=== PATIENT | male | born 1965 ===

== ENCOUNTER 2020-12-27 14:35 | Emergency (ER) | payer OTHER, SELFPAY ==
[2020-12-27 14:57] VITALS: BP 205/100; PULSE 77; RESP 14; TEMP 36.4; O2SAT 99; BMI 29.7
--- NOTE | 2020-12-27 17:12 | ED_ITS ---
HPI - Eye Problem General Chief complaint: Eye Problems Stated complaint: debris in left eye since 12/23 Time Seen by Provider: 12/27/20 17:08 Source: patient Mode of arrival: Ambulatory Limitations: no limitations History of Present Illness HPI Narrative: Patient is a 55-year-old male presents with left eye pain ongoing for the last 4 days. 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 He feels like it is rubbing underneath his eyelid ever since. He does not wear contacts only reading glasses chief complaint: eye pain and eye redness Onset (ago): day(s) (4) Place: work Related Data Previous Rx's Medication Instructions Recorded polymyxin B sulf-trimethoprim 1 drp EYE-LEFT Q4HRWA #10 ml 12/27/20 [Polytrim] Review of Systems Review of Systems Narrative: GENERAL: Denies chills,fever HEENT: See HPI RESPIRATORY: Denies dyspnea, cough, wheezing CARDIOVASCULAR: Denies chest pain, palpitations GASTROINTESTINAL: Denies nausea, vomiting MUSCULOSKELETAL: Denies extremity pain, injury SKIN: No rash, no laceration, no pruritus NEUROLOGIC: Denies weakness, dizziness, headache, numbness 8 point review of systems is negative except for those stated above and HPI Patient History Social History Smoking Status: Never smoker Smoking Status: Never smoker alcohol intake frequency: 0-2 drinks per day Substance Use Type: does not use Exam Initial Vital Signs Initial Vital Signs: Vital Signs Temperature 97.6 F 12/27/20 14:57 Pulse Rate 77 12/27/20 14:57 Respiratory Rate 14 12/27/20 14:57 Blood Pressure 205/100 H 12/27/20 14:57 Pulse Oximetry 99 12/27/20 14:57 GENERAL: Well-appearing, well-nourished and in no acute distress. Left eye was treated with proparacaine, stained with fluorescein. Foreign body noted over the cornea CARDIOVASCULAR: peripheral pulses in tact, cap refill <2 sec RESPIRATORY: No respiratory distress, speaks in full sentences without difficulty EXTREMITIES: Normal range of motion, no clubbing or edema. Neurovascularly intact NEUROLOGICAL: Cranial nerves II through XII grossly intact. Normal gait and speech. SKIN: Warm, dry, no petechiae, no rashes or lesions. Procedures Foreign Body EYE Time Out performed: Yes Location: eye (L) Topical anesthetic used: proparacaine Foreign body: metal Evidence of corneal penetration: No Technique: irrigation, cotton tip swab and needle Procedure performed under: direct visualization with magnification Post-procedure medication: ophthalmic antibiotic Patient tolerated procedure: well Course Orders Ordered: Discontinued Medications Diphtheria/Tetanus/Acell Pertussis (Tet,Diph,Pertuss(Acell),Vac/Pf 0.5 Ml Sy ringe) 0.5 ml IM .ONCE ONE Stop: 12/27/20 17:45 Last Admin: 12/27/20 17:51 Dose: 0.5 ml Documented by: SHAE Fluorescein Sodium (Fluorescein 1 Mg Strip) 1 mg EYE-LEFT NOW ONE Stop: 12/27/20 17:13 Last Admin: 12/27/20 17:21 Dose: 1 mg Documented by: SHAE Proparacaine HCl (Proparacaine 0.5% Ophth Ciara) 1 drops EYE-BOTH NOW ONE Stop: 12/27/20 17:13 Last Admin: 12/27/20 17:20 Dose: 1 drops Documented by: SHAE Vital Signs Vital signs: Vital Signs - 8 hr 12/27/20 14:57 12/27/20 18:05 Temperature 97.6 F Pulse Rate 77 65 Respiratory Rate 14 18 Blood Pressure 205/100 H 180/99 H Pulse Oximetry 99 99 MDM - Eye Problem MDM Narrative Medical decision making narrative: Obvious metal in left cornea. It was relatively easily to remove with a small insulin needle. I was flushed afterwards with normal saline. Patient overall felt better. He states he cannot wear safety glasses over his reading glasses. Discharge Plan Departure Patient Disposition: Home Clinical Impression: Acute foreign body of left eye Qualifiers: Encounter type: initial encounter Qualified Code(s): T15.92XA - Foreign body on external eye, part unspecified, left eye, initial encounter Instructions: DI for Corneal Foreign Body-Eye Activity Restrictions/Additional Instructions: *You have been diagnosed with left eye foreign body *What to do: Expect to be sensitive to light. Here I should start to feel better. *Continue to take medications as directed Polytrim 2 drops left eye every 4 hours while awake for 1 week Ibuprofen 600 mg every 6-8 hours if needed for [id number] pain Tylenol 650 mg every is 4-6 hours if needed for [id number] *Follow up with your primary care provider in 2-3 days *Return to ER if you should have increasing pain, loss of vision [or] any new, worsening or concerning symptoms Prescriptions: New polymyxin B sulf-trimethoprim [Polytrim] 10,000 unit- 1 mg/mL drops 1 drp EYE-LEFT Q4HRWA Qty: 10 RF: 0 Referrals: Miscellaneous,Doctor, [Primary Care Provider] -
[2020-12-27] MEDS: PROPARACAINE 0.5% OPHTH SOL 1 DROPS EYE-BOTH (17:20)
[2020-12-27] MEDS: FLUORESCEIN 1 MG STRIP EYE-LEFT (17:21)
[2020-12-27] MEDS: TET,DIPH,PERTUSS(ACELL),VAC/PF 0.5 ML SYRINGE IM (17:51)
[2020-12-27 18:05] VITALS: BP 180/99; PULSE 65; RESP 18; O2SAT 99
== END 2020-12-27 18:06 | disposition home or self-care (01) ==
PROVIDERS: Emergency Provider Emergency Medicine
DX: T15.92XA Foreign body on external eye, part unspecified, left eye, initial encounter (principal); S00.252A Superficial foreign body of left eyelid and periocular area, initial encounter; Z23 Encounter for immunization; Y99.0 Civilian activity done for income or pay
CPT/HCPCS: 65205; 90471; 99283; 90715